=== PATIENT | male | born 1985 | race Caucasian/White ===

== ENCOUNTER 2016-11-08 09:50 | Emergency (ER) | payer BC ==
--- NOTE | 2016-11-08 10:29 | EDM.PDOC ---
ED HPI GENERAL MEDICAL PROBLEM - General Chief Complaint: Headache Stated Complaint: HEAD PAIN/VOMITING/BLACKING OUT Time Seen by Provider: 11/08/16 10:29 Source of Information: Reports: Patient History Limitations: Reports: No Limitations - History of Present Illness INITIAL COMMENTS - FREE TEXT/NARRATIVE: 31-year-old male presents to the ED with reported severe headache. He's been suffering intermittent severe headaches for the last 2 weeks. He has a history of migraine headaches but never usually to this severity or this frequency. No recent falls or closed head injuries. This morning he awoke with a severe headache and once the sunlight hit him it seemed to make the headache much worse i.e. he severely photophobic. He did try to go to work but passed out at the workplace and was therefore sent home. He did have nausea and vomiting of bilious material's morning without blood. Has not been able to eat yet today. Usually been taking high quantities of Tylenol and Motrin for headache relief. He states otherwise his health is usually been pretty good. Headache pain is usually entire head today is more left hemicranial and particularly behind his eyes. Doesn't feel nauseated at present. [place] somewhat better after vomiting this morning Onset: Other (Chronic daily headache for the last 2 weeks just worse headache today.) Onset Date: 11/08/16 (Headache much worse today.) Duration: Week(s): (Intermittent headaches for several weeks gradually getting worse.) Location: Reports: Head Quality: Reports: Ache, Same as Previous Episode, Throbbing, Other (Owning). Denies: Burning, Dull, Pressure, Sharp (Just more intense today.) Severity: Severe Improves with: Reports: None (Grades it a 10 out of 10.) Worsens with: Reports: Other (Exposure to sunlight), Movement Context: Denies: Activity, Exercise, Lifting, Sick Contact, Trauma Associated Symptoms: Reports: Headaches, Loss of Appetite, Malaise, Nausea/ Vomiting. Denies: Fever/Chills (Vomited once this morning of bilious material) , Rash, Seizure, Shortness of Breath Treatments PATIENT OFFICE REP: Reports: Acetaminophen, NSAIDS (Motrin.) Headache Pain Score (Numeric/FACES): 7 - Related Data Allergies Allergy/AdvReac Type Severity Reaction Status Date / Time No Known Allergies Allergy Verified 11/08/16 10:16 Home Meds: Home Meds Ketorolac [Toradol] 10 mg PO Q6H PRN #10 tablet 11/08/16 [Rx] Metoclopramide HCl [Reglan] 10 mg PO 12 PRN #12 tablet 11/08/16 [Rx] Past Medical History Neurological History: Reports: Migraines Social & Family History - Tobacco Use Smoking Status *Q: Current Some Day Smoker Years of Tobacco use: 20 Packs/Tins Daily: 0.1 - Caffeine Use Caffeine Use: Reports: Energy Drinks, Soda Caffeine Use Comment: reports he stopped drinking energy drinks about 1 month ago - Recreational Drug Use Recreational Drug Use: No - Living Situation & Occupation Living situation: Reports: Occupation: Employed ED ROS GENERAL - Review of Systems Review Of Systems: See Below Constitutional: Reports: Weakness, Fatigue, Diaphoresis (Today when he vomited.) , Decreased Appetite. Denies: Fever, Chills, Malaise, Weight Loss HEENT: Reports: Ear Pain (Ear pressure at times.), Eye Pain. Denies: Glasses ( Very sensitive to sunlight.), Hearing Loss, Nosebleed, Rhinitis, Sinus Problem, Throat Pain, Throat Swelling Respiratory: Reports: No Symptoms Cardiovascular: Reports: No Symptoms Endocrine: Reports: No Symptoms GI/Abdominal: Reports: Nausea, Vomiting. Denies: Abdominal Pain : Reports: No Symptoms Musculoskeletal: Reports: No Symptoms Skin: Reports: No Symptoms Neurological: Reports: Dizziness, Headache, Syncope, Difficulty Walking (Seems to be more clumsy and stumbling more easily the last week or 2.). Denies: Pre- Existing Deficit, Trouble Speaking, Weakness, Change in Speech, Gait Disturbance Psychiatric: Reports: No Symptoms Hematologic/Lymphatic: Reports: No Symptoms Immunologic: Reports: No Symptoms - Physical Exam Exam: See Below Exam Limited By: Other General Appearance: Moderate Distress (Examination in dark room with sunglasses on due to the severity of his headache.) Eye Exam: Bilateral Eye: Normal Inspection, PERRL Ears: Normal TMs Throat/Mouth: Normal Inspection, Normal Lips, Normal Teeth, Normal Oropharynx Head Exam: Atraumatic, Normocephalic Neck: Normal Inspection, Supple, Non-Tender, Full Range of Motion. No: Lymphadenopathy (L), Lymphadenopathy (R) Respiratory/Chest: No Respiratory Distress, Lungs Clear, Normal Breath Sounds, No Accessory Muscle Use Cardiovascular: Normal Peripheral Pulses, Regular Rate, Rhythm, No Edema, No Gallop, No Murmur GI/Abdominal: Normal Bowel Sounds, Soft, Non-Tender, No Organomegaly, Abnormal Bowel Sounds, Other (Hypoactive no surgical scars) (Male) Exam: No Hernia Neuro Exam (Abbreviated): Alert, Oriented, CN II-XII Intact, Normal Cognition, Normal Reflexes, No Motor/Sensory Deficits. No: Normal Gait DTR: 1+: Achilles (R), Achilles (L), 2+: Bicep (R), Bicep (L), Patella (R), Patella (L) Back Exam: Normal Inspection Extremities: Normal Inspection, Normal Range of Motion, Non-Tender, No Pedal Edema, Normal Capillary Refill Psychiatric: Normal Affect, Normal Mood Skin Exam: Warm, Dry, Intact, Normal Color, No Rash Course - Vital Signs Last Recorded V/S: Last Vital Signs Temp 36.1 C 11/08/16 10:12 Pulse 68 11/08/16 12:45 Resp 16 11/08/16 12:45 BP 111/70 11/08/16 12:45 Pulse Ox 98 11/08/16 12:45 Orthostatic Blood Pressure [ 128/72 Standing] Orthostatic Blood Pressure [ 112/78 Sitting] Orthostatic Blood Pressure [ 121/75 Supine] - Orders/Labs/Meds Meds: Medications Discontinued Medications Generic Name Dose Route Start Last Admin Trade Name Garretq PRN Reason Stop Dose Admin Diphenhydramine HCl 25 mg 11/08/16 10:39 11/08/16 11:17 Benadryl IVPUSH 11/08/16 10:40 25 mg ONETIME ONE Administration Hydromorphone HCl 1 mg 11/08/16 10:40 11/08/16 11:19 Dilaudid IVPUSH 11/08/16 10:41 1 mg ONETIME ONE Administration Dextrose/Sodium Chloride 1,000 mls @ 999 mls/hr 11/08/16 10:45 11/08/16 11:21 Dextrose 5%-Normal Saline IV 999 mls/hr ASDIRECTED VIGNESH Administration Ketorolac Tromethamine 30 mg 11/08/16 11:30 11/08/16 11:26 Toradol IVPUSH 30 mg ONETIME VIGNESH Administration Metoclopramide HCl 10 mg 11/08/16 10:39 11/08/16 11:15 Reglan IVPUSH 11/08/16 10:40 10 mg ONETIME ONE Administration - Radiology Interpretation Free Text/Narrative:: 30-year-old male presents to the ED with a severe headache. Severe photosensitivity this morning. Tried to go to work with a severe headache but was unable do so. Soon as he got to work he recognized the sunlight intensified his headache and he vomited. He also had a fainting spell at that time. He thus was sent home from work. States she's been having migraine headaches or and almost chronic daily headaches for the last 2 weeks. History of migraine headaches in the past. No recent falls or closed head injuries. Appreciates that he is a little off balance and more clumsy at times. No change in his vision other than today he can't stand the sunlight. Neuro exam on gross grossly is normal. Plan CT head will be done due to increasing symptoms over the last several weeks. Plan IV D5 normal saline at open. Given Dilaudid 1 mg with Reglan 10 mg IV and Benadryl 25 mg IV. May add Toradol if his CT is okay. - Re-Assessments/Exams Free Text/Narrative Re-Assessment/Exam: 11/08/16 11:20 CT of the brain is completely normal. Sinuses are clear as well. Will therefore add Toradol 30 mg to his current treatment plan. 11/08/16 12:34 he reports headache is pretty well gone completely. He is now feeling hungry. I will discharge him from the department. He needs follow-up with neurology to start him on prophylaxis medication daily to prevent the migraines from recurring. By history he's been on Topamax in the past without much effect. He's been on others but he can't remember their names. I will write a prescription for Toradol 10 mg tablet with Reglan 10 mg tablet that he can take at the onset of severe headache and repeat in 6 hours if necessary to try and help control the severity these headaches. Departure - Departure Time of Disposition: 12:35 Disposition: Home, Self-Care 01 Condition: Fair Clinical Impression: Migraine, Chronic daily headache - Discharge Information Prescriptions: Ketorolac [Toradol] 10 mg PO Q6H PRN #10 tablet PRN Reason: headache relief. Metoclopramide HCl [Reglan] 10 mg PO 12 PRN #12 tablet PRN Reason: Migraine headache relief Instructions: Migraine Headache, [id number] Referrals: Quinton Oconnor MD [Primary Care Provider] - Forms: ED Department Discharge, ED Return to Work/School Form Additional Instructions: Evaluation the emergency room today in regards to a severe headache with associated nausea vomiting and near syncope this morning. Severe associated photophobia suggesting migraine headache. Unfortunately it sounds like your head suffering a lot of headaches almost on a daily basis which we called chronic daily headache. Today you were treated with intravenous fluids to rehydrate you as well as pain medication Dilaudid Toradol Reglan and Benadryl. These medications are combination that we often used to break the headache cycle cycle and nausea relief. May eat and drink per normal. I will write a prescription for Toradol 10 mg tablet and Reglan 10 mg tablet for future use. Ice it would suggest taking one tablet of each at the onset of severe headache to see if it will bring them under control. I believe you do need to follow-up with neurology to get started on medication to take on a daily basis to prevent the headaches from coming in the first place. Neck medications are on the market to try and help this.
[2016-11-08] MEDS ORDERED: Metoclopramide 10 MG/2 ML SDV IVPUSH ONE (10:39)
[2016-11-08] MEDS ORDERED: diphenhydrAMINE 50 MG/ML SDV IVPUSH ONE (10:39)
[2016-11-08] MEDS ORDERED: HYDROmorphone 1 MG/ML Syringe IVPUSH ONE (10:40)
[2016-11-08] MEDS ORDERED: Dextrose 5%-0.9% NaCl 1,000 ML IV SCH (10:45)
--- NOTE | 2016-11-08 11:00 | CT ---
Head CT Technique: Multiple axial sections through the brain were obtained. Intravenous contrast was not utilized. Comparison: No previous study. Findings: Ventricles along with basal cisterns and sulci over convexities are within normal limits. No abnormal parenchymal densities are seen. No evidence of intracranial hemorrhage. No midline shift or mass effect is seen. Bone window settings were reviewed which shows the visualized sinuses to appear clear. No acute calvarial abnormality is seen. Impression: 1. No acute intracranial abnormality is identified on noncontrast head CT study. Diagnostic code #1
[2016-11-08] MEDS ORDERED: Ketorolac 30 MG/ML SDV IVPUSH SCH (11:30)
[2016-11-08 13:12] VITALS: BP 111/70
== END 2016-11-08 12:50 | disposition home or self-care (01) ==
LOC: JD.ED 09:50
DX: G43.909 Migraine, unspecified, not intractable, without status migrainosus (principal); F17.210 Nicotine dependence, cigarettes, uncomplicated
CPT/HCPCS: 70450; 99284; J1170; J1200; J1885; J2765; J7042

== ENCOUNTER 2017-11-05 09:59 | Emergency (ER) | payer SELFPAY ==
[2017-11-05] MEDS ORDERED: Sodium Chloride 0.9% 10 ML Syringe FLUSH PRN (10:52)
[2017-11-05] MEDS ORDERED: Aspirin 81 MG Tab.Chew PO ONE (10:52)
[2017-11-05] MEDS ORDERED: Sodium Chloride 0.9% 1,000 ML IV SCH (11:00)
--- NOTE | 2017-11-05 13:03 | EDM.PDOC ---
ED HPI GENERAL MEDICAL PROBLEM - General Chief Complaint: Chest Pain Stated Complaint: CHEST PAIN X 10 DAYS Time Seen by Provider: 11/05/17 10:43 Source of Information: Reports: Patient History Limitations: Reports: No Limitations - History of Present Illness INITIAL COMMENTS - FREE TEXT/NARRATIVE: The patient presents wit left sided chest pain. This has been going on for about 11 days. 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 He got out of his truck and vomited. He then had a syncopal episode. He had that happen again and came to the ER to be evaluated. He was seen here and a work up was done and it was relatively normal. Since that day he has had left sided chest pain. He says it is there constantly and with exertion and when he gets upset it gets worse. The pain is sharp. He has no shortness of breath with it. He has no fever, chills, cough, abdominal pain, nausea or vomiting Onset: Gradual Duration: Day(s): (11) Location: Reports: Chest Quality: Reports: Sharp Severity: Moderate Improves with: Reports: Immobilization Worsens with: Reports: Movement Associated Symptoms: Reports: Chest Pain. Denies: Cough, Fever/Chills, Headaches, Nausea/Vomiting, Shortness of Breath Left Chest Pain Score (Numeric/FACES): 6 - Related Data Allergies Allergy/AdvReac Type Severity Reaction Status Date / Time No Known Allergies Allergy Verified 11/05/17 10:25 Home Meds: Home Meds Ondansetron [Zofran ODT] 4 mg PO Q6H PRN #12 tab.dis 10/25/17 [Rx] Hydrocodone/Acetaminophen [Hydrocodon-Acetaminophen 5-325] 1 - 2 each PO Q6HR PRN #15 tablet 11/05/17 [Rx] Past Medical History Neurological History: Reports: Migraines Social & Family History - Tobacco Use Smoking Status *Q: Light Tobacco Smoker Years of Tobacco use: 24 Packs/Tins Daily: 0.1 - Caffeine Use Caffeine Use: Reports: Soda Caffeine Use Comment: reports he stopped drinking energy drinks about 1 month ago - Recreational Drug Use Recreational Drug Use: No - Living Situation & Occupation Living situation: Reports: Occupation: Employed ED ROS GENERAL - Review of Systems Review Of Systems: See Below Constitutional: Reports: No Symptoms HEENT: Reports: No Symptoms Respiratory: Reports: No Symptoms Cardiovascular: Reports: Chest Pain Endocrine: Reports: No Symptoms GI/Abdominal: Reports: No Symptoms : Reports: No Symptoms Musculoskeletal: Reports: No Symptoms ED EXAM, GENERAL - Physical Exam Exam: See Below Exam Limited By: No Limitations General Appearance: Alert, No Apparent Distress Ears: Normal External Exam Nose: Normal Inspection Head: Atraumatic, Normocephalic Neck: Normal Inspection Respiratory/Chest: No Respiratory Distress, Lungs Clear, Normal Breath Sounds Cardiovascular: Regular Rate, Rhythm, No Edema, No Murmur GI/Abdominal: Soft, Non-Tender, No Organomegaly, No Mass Back Exam: Normal Inspection Extremities: Normal Inspection EKG INTERPRETATION EKG Date: 11/05/17 Time: 10:23 Rhythm: Other (Sinus bradycardia) Rate (Beats/Min): 56 [place]: Normal P-Wave: Present QRS: Normal ST-T: Elevated (Normal early repol) QT: Normal Course - Vital Signs Last Recorded V/S: Last Vital Signs Temp 97.1 F 11/05/17 10:22 Pulse 56 L 11/05/17 10:22 Resp 15 11/05/17 10:22 BP 127/81 11/05/17 10:22 Pulse Ox 96 11/05/17 10:22 - Orders/Labs/Meds Orders: Active Orders 24 hr Category Date Time Status Cardiac Monitoring [RC] . DIRECTED Care 11/05/17 10:53 Active EKG Documentation Completion [RC] ASDIRECTED Care 11/05/17 10:36 Active Peripheral IV Care [RC] . DIRECTED Care 11/05/17 10:53 Active Chest 2V [CR] Stat Exams 11/05/17 10:53 Taken Sodium Chloride 0.9% [Normal Saline] 1,000 ml Med 11/05/17 11:00 Active IV .BOLUS Sodium Chloride 0.9% [Saline Flush] Med 11/05/17 10:52 Active 10 ml FLUSH ASDIRECTED PRN Peripheral IV Insertion Adult [OM.PC] Stat Oth 11/05/17 10:52 Ordered EKG 12 Lead [EK] Stat Ther 11/05/17 10:36 Ordered Medication Orders Sodium Chloride (Normal Saline) 1,000 mls @ 1,000 mls/hr IV .BOLUS VIGNESH Last Admin: 11/05/17 11:07 Dose: 1,000 mls/hr Sodium Chloride (Saline Flush) 10 ml FLUSH ASDIRECTED PRN PRN Reason: Keep Vein Open Last Admin: 11/05/17 11:07 Dose: 10 ml Labs: Laboratory Tests 11/05/17 11/05/17 11/05/17 Range/Units 11:05 11:05 11:05 WBC 8.23 (4.23-9.07) K/mm3 RBC 5.33 (4.63-6.08) M/mm3 Hgb 15.4 (13.7-17.5) gm/L Hct 43.9 (40.1-51.0) % MCV 82.4 (79.0-92.2) fl MCH 28.9 (25.7-32.2) pg MCHC 35.1 (32.2-35.5) g/dl RDW Std Deviation 38.8 (35.1-43.9) fL Plt Count 187 (163-337) K/mm3 MPV 11.5 (9.4-12.3) fl Neut % (Auto) 52.0 (34.0-67.9) % Lymph % (Auto) 36.7 (21.8-53.1) % [place] % (Auto) 8.7 (5.3-12.2) % Eos % (Auto) 1.7 (0.8-7.0) Baso % (Auto) 0.4 (0.1-1.2) % Neut # (Auto) 4.28 (1.78-5.38) K/mm3 Lymph # (Auto) 3.02 (1.32-3.57) K/mm3 [place] # (Auto) 0.72 (0.30-0.82) K/mm3 Eos # (Auto) 0.14 (0.04-0.54) K/mm3 Baso # (Auto) 0.03 (0.01-0.08) K/mm3 D-Dimer, Quantitative 0.46 (0.19-0.50) mg/L Sodium 139 (136-145) mEq/L Potassium 4.4 (3.5-5.1) mEq/L Chloride 103 (98-107) mEq/L Carbon Dioxide 25 (21-32) mEq/L Anion Gap 15.4 H (5-15) BUN 16 (7-18) mg/dL Creatinine 1.0 (0.7-1.3) mg/dL Est Cr Clr Drug Dosing 104.09 mL/min Estimated GFR (MDRD) > 60 (>60) mL/min BUN/Creatinine Ratio 16.0 (14-18) Glucose 96 (74-106) mg/dL Calcium 9.1 (8.5-10.1) mg/dL Total Bilirubin 0.4 (0.2-1.0) mg/dL AST 35 (15-37) U/L ALT 75 H (16-63) U/L Alkaline Phosphatase 78 (46-116) U/L Troponin I < 0.017 (0.00-0.056) ng/mL Total Protein 7.4 (6.4-8.2) g/dl Albumin 3.8 (3.4-5.0) g/dl Globulin 3.6 gm/dL Albumin/Globulin Ratio 1.1 (1-2) Meds: Medications Generic Name Dose Route Start Last Admin Trade Name Freq PRN Reason Stop Dose Admin Sodium Chloride 1,000 mls @ 1,000 mls/hr 11/05/17 11:00 11/05/17 11:07 Normal Saline IV 1,000 mls/hr .BOLUS VIGNESH Administration Sodium Chloride 10 ml 11/05/17 10:52 11/05/17 11:07 Saline Flush FLUSH 10 ml ASDIRECTED PRN Administration Keep Vein Open Discontinued Medications Generic Name Dose Route Start Last Admin Trade Name Freq PRN Reason Stop Dose Admin Aspirin 324 mg 11/05/17 10:52 11/05/17 11:06 Aspirin PO 11/05/17 10:53 324 mg ONETIME ONE Administration - Re-Assessments/Exams Free Text/Narrative Re-Assessment/Exam: 11/05/17 13:23 I ordered an IV saline lock, EKG, CXR, labs and aspirin. His EKG shows a sinus bradycardia with no acute changes. His CXR looks good. His CBC and CMP look good. His troponin and D-dimer were negative. He still has some pain. I have ordered a stress test for . He is seeing Dr Lynch on the . Departure - Departure Time of Disposition: 13:30 Disposition: Home, Self-Care 01 Condition: Good Clinical Impression: Chest pain Qualifiers: Chest pain type: unspecified Qualified Code(s): R07.9 - Chest pain, unspecified Prescriptions: Hydrocodone/Acetaminophen [Hydrocodon-Acetaminophen 5-325] 1 - 2 each PO Q6HR PRN #15 tablet PRN Reason: Pain Referrals: Quinton Oconnor MD [Primary Care Provider] - 2 Weeks Forms: ED Department Discharge Additional Instructions: Take motrin or aleve for pain. You may also take the hydrocodone for pain. I have ordered a stress test for at 7:15am. Please come early to register. Please return if you are worse or follow up with Dr Lynch as planned. I will try to call you the results on Sunday. - My Orders Last 24 Hours: My Active Orders 11/05/17 10:36 EKG Documentation Completion [RC] ASDIRECTED EKG 12 Lead [EK] Stat 11/05/17 10:52 Sodium Chloride 0.9% [Saline Flush] 10 ml FLUSH ASDIRECTED PRN Peripheral IV Insertion Adult [OM.PC] Stat 11/05/17 10:53 Cardiac Monitoring [RC] . DIRECTED Peripheral IV Care [RC] . DIRECTED Chest 2V [CR] Stat 11/05/17 11:00 Sodium Chloride 0.9% [Normal Saline] 1,000 ml IV .BOLUS - Assessment/Plan Last 24 Hours: My Active Orders 11/05/17 10:36 EKG Documentation Completion [RC] ASDIRECTED EKG 12 Lead [EK] Stat 11/05/17 10:52 Sodium Chloride 0.9% [Saline Flush] 10 ml FLUSH ASDIRECTED PRN Peripheral IV Insertion Adult [OM.PC] Stat 11/05/17 10:53 Cardiac Monitoring [RC] . DIRECTED Peripheral IV Care [RC] . DIRECTED Chest 2V [CR] Stat 11/05/17 11:00 Sodium Chloride 0.9% [Normal Saline] 1,000 ml IV .BOLUS
[2017-11-05 13:40] VITALS: BP 123/74
--- NOTE | 2017-11-12 08:36 | CR ---
Chest: Two views of the chest were obtained. Comparison: Prior chest x-ray of 10/25/17. Heart size and mediastinum are normal. Lungs are clear without acute parenchymal change. Bony structures are unremarkable. Impression: 1. Nothing acute is seen on two-view chest x-ray. Diagnostic code #1
== END 2017-11-05 13:44 | disposition home or self-care (01) ==
LOC: JD.ED 09:59
DX: R07.9 Chest pain, unspecified (principal); F17.210 Nicotine dependence, cigarettes, uncomplicated
CPT/HCPCS: 36415; 71046; 80053; 84484; 85025; 85379; 93005; 96360; 99285; A9270; J7040; J7050; 93010; 99284-25

== ENCOUNTER 2019-01-13 03:18 | Emergency (ER) | payer BC, OTHER ==
[2019-01-13] MEDS ORDERED: diphenhydrAMINE 50 MG Cap PO ONE (07:36)
[2019-01-13] MEDS ORDERED: Metoclopramide 10 MG/2 ML SDV IVPUSH ONE (07:36)
[2019-01-13] MEDS ORDERED: Sodium Chloride 0.9% 10 ML Syringe FLUSH PRN (07:36)
[2019-01-13] MEDS ORDERED: Sodium Chloride 0.9% 1,000 ML IV SCH (07:45)
[2019-01-13] MEDS ORDERED: Ketorolac 30 MG/ML SDV IVPUSH SCH (07:45)
--- NOTE | 2019-01-13 09:34 | EDM.PDOC ---
ED HPI GENERAL MEDICAL PROBLEM - General Chief Complaint: Headache Stated Complaint: VOMITING Time Seen by Provider: 01/13/19 07:30 Source of Information: Reports: Patient, RN Notes Reviewed - History of Present Illness INITIAL COMMENTS - FREE TEXT/NARRATIVE: 33 year old had onset of cough, hannah. sore throat about 3 days ago, onset of migraine Brooks yesterday, worse today. Throbbing, N/V. Chills, no fever. Cough mostly nonprod. Headache Pain Score (Numeric/FACES): 10 Throat Pain Score (Numeric/FACES): 7 - Related Data Allergies Allergy/AdvReac Type Severity Reaction Status Date / Time No Known Allergies Allergy Verified 01/13/19 05:50 Home Meds: Home Meds Phenylephrine/Acetaminophn/Pnm [Theraflu Sinus & Cold] 1 pack PO ONCALL PRN [History] Past Medical History - Past Health History Medical/Surgical History: Denies Medical/Surgical History Neurological History: Reports: Migraines Social & Family History - Tobacco Use Smoking Status *Q: Never Smoker - Caffeine Use Caffeine Use: Reports: Soda Caffeine Use Comment: reports he stopped drinking energy drinks about 1 month ago - Recreational Drug Use Recreational Drug Use: No - Living Situation & Occupation Living situation: Reports: Occupation: Employed ED ROS GENERAL - Review of Systems Review Of Systems: See Below Constitutional: Reports: Chills. Denies: Fever HEENT: Reports: Rhinitis, Throat Pain Respiratory: Reports: Cough. Denies: Shortness of Breath, Sputum Cardiovascular: Denies: Chest Pain GI/Abdominal: Reports: Nausea, Vomiting. Denies: Abdominal Pain Musculoskeletal: Denies: Neck Pain, Shoulder Pain, Back Pain Skin: Reports: No Symptoms Neurological: Reports: Headache. Denies: Trouble Speaking, Difficulty Walking ED EXAM, HEAD INJURY - Physical Exam Exam: See Below General Appearance: Alert Head: Atraumatic. No: Facial Swelling Throat/Mouth: Normal Inspection Neck: Non-Tender Respiratory: No Respiratory Distress, Lungs Clear, Normal Breath Sounds Cardiovascular: Regular Rate, Rhythm GI/Abdominal Exam: Soft, Non-Tender Back Exam: Normal Inspection Extremities: Normal Inspection Neurologic: No Motor/Sensory Deficits, Oriented x 3 Skin: Normal Color, Warm/Dry Course - Vital Signs Last Recorded V/S: Last Vital Signs Temp 98.5 F 01/13/19 08:10 Pulse 68 10/28/19 08:10 Resp 16 01/13/19 08:10 BP 127/83 01/13/19 08:10 Pulse Ox 99 01/13/19 08:10 - Orders/Labs/Meds Orders: Active Orders 24 hr Category Date Time Status Peripheral IV Care [RC] . DIRECTED Care 01/13/19 07:36 Active Ketorolac [Toradol] Med 01/13/19 07:45 Active 30 mg IVPUSH ONETIME Sodium Chloride 0.9% [Normal Saline] 1,000 ml Med 01/13/19 07:45 Active IV ONETIME Sodium Chloride 0.9% [Saline Flush] Med 01/13/19 07:36 Active 10 ml FLUSH ASDIRECTED PRN Peripheral IV Insertion Adult [OM.PC] Stat Oth 01/13/19 07:36 Ordered Medication Orders Sodium Chloride (Normal Saline) 1,000 mls @ 999 mls/hr IV ONETIME VIGNESH Last Admin: 01/13/19 08:22 Dose: 999 mls/hr Ketorolac Tromethamine (Toradol) 30 mg IVPUSH ONETIME VIGNESH Last Admin: 01/13/19 08:20 Dose: 30 mg Sodium Chloride (Saline Flush) 10 ml FLUSH ASDIRECTED PRN PRN Reason: Keep Vein Open Last Admin: 01/13/19 08:15 Dose: 10 ml Meds: Medications Generic Name Dose Route Start Last Admin Trade Name Freq PRN Reason Stop Dose Admin Sodium Chloride 1,000 mls @ 999 mls/hr 01/13/19 07:45 01/13/19 08:22 Normal Saline IV 999 mls/hr ONETIME VIGNESH Administration Ketorolac Tromethamine 30 mg 01/13/19 07:45 01/13/19 08:20 Toradol IVPUSH 30 mg ONETIME VIGNESH Administration Sodium Chloride 10 ml 01/13/19 07:36 01/13/19 08:15 Saline Flush FLUSH 10 ml ASDIRECTED PRN Administration Keep Vein Open Discontinued Medications Generic Name Dose Route Start Last Admin Trade Name Freq PRN Reason Stop Dose Admin Diphenhydramine HCl 50 mg 01/13/19 07:36 01/13/19 08:23 Benadryl PO 01/13/19 07:37 50 mg ONETIME ONE Administration Metoclopramide HCl 10 mg 01/13/19 07:36 01/13/19 08:18 Reglan IVPUSH 01/13/19 07:37 10 mg ONETIME ONE Administration - Re-Assessments/Exams Free Text/Narrative Re-Assessment/Exam: 01/13/19 09:55 Feeling better after IV fluid and meds, discharge instr. as documented. Departure - Departure Time of Disposition: :28 Disposition: Home, Self-Care 01 Condition: Fair Clinical Impression: Viral URI, Migraine - Discharge Information Referrals: Sudha Grant PA-C [Primary Care Provider] - Forms: ED Department Discharge, ED Return to Work/School Form Additional Instructions: rest, drink plenty of fluids to maintain hydration. You have been given sedating meds here in the ED, do not drive for 8 to 10 hours. Start Zithromax antibioitc if not much better within 2 to 3 days as expected. Follow up clinic as needed. - My Orders Last 24 Hours: My Active Orders 01/13/19 07:36 Peripheral IV Care [RC] . DIRECTED Sodium Chloride 0.9% [Saline Flush] 10 ml FLUSH ASDIRECTED PRN Peripheral IV Insertion Adult [OM.PC] Stat 01/13/19 07:45 Ketorolac [Toradol] 30 mg IVPUSH ONETIME Sodium Chloride 0.9% [Normal Saline] 1,000 ml IV ONETIME - Assessment/Plan Last 24 Hours: My Active Orders 01/13/19 07:36 Peripheral IV Care [RC] . DIRECTED Sodium Chloride 0.9% [Saline Flush] 10 ml FLUSH ASDIRECTED PRN Peripheral IV Insertion Adult [OM.PC] Stat 01/13/19 07:45 Ketorolac [Toradol] 30 mg IVPUSH ONETIME Sodium Chloride 0.9% [Normal Saline] 1,000 ml IV ONETIME
[2019-01-13 09:53] VITALS: BP 121/79; PULSE 81
== END 2019-01-13 09:50 | disposition home or self-care (01) ==
LOC: JD.ED 03:18
DX: J06.9 Acute upper respiratory infection, unspecified (principal); G43.909 Migraine, unspecified, not intractable, without status migrainosus
CPT/HCPCS: 96361; 96374; 96375; 99283; A9270; J1885; J2765; J7040

== ENCOUNTER 2021-09-06 05:52 | Emergency (ER) | payer BC, OTHER ==
[2021-09-06] MEDS ORDERED: Ondansetron 4 MG/2 ML SDV IVPUSH ONE (06:29)
[2021-09-06] MEDS ORDERED: Benztropine 1 MG Tab PO ONE (06:29)
[2021-09-06] MEDS ORDERED: Haloperidol Lactate 5 MG/ML SDV IM ONE (06:29)
[2021-09-06] MEDS ORDERED: Sodium Chloride 0.9% 1,000 ML IV ONE (06:29)
[2021-09-06 08:04] VITALS: BP 123/77; PULSE 60
== END 2021-09-06 08:00 | disposition home or self-care (01) ==
LOC: JD.ED 05:52
DX: G43.909 Migraine, unspecified, not intractable, without status migrainosus (principal); E66.9 Obesity, unspecified; Z68.38 Body mass index [BMI] 38.0-38.9, adult; Z28.310 Unvaccinated for COVID-19; Z87.891 Personal history of nicotine dependence
CPT/HCPCS: 96361; 96372; 96374; 99283; A9270; J1630; J2405; J7030; 99282

== ENCOUNTER 2021-10-20 06:02 | Emergency (ER) | payer OTHER ==
[2021-10-20] MEDS ORDERED: Ondansetron 4 MG/2 ML SDV IVPUSH ONE (06:28)
[2021-10-20] MEDS ORDERED: HYDROmorphone 1 MG/ML Syringe IVPUSH STA (06:28)
[2021-10-20] MEDS ORDERED: Sodium Chloride 0.9% 1,000 ML IV SCH (06:30)
[2021-10-20] MEDS ORDERED: Sodium Chloride 0.9% 10 ML Syringe FLUSH ONE (06:38)
[2021-10-20] MEDS ORDERED: Iopamidol 612 MG/ML 100 ML Bottle IVPUSH ONE (06:38)
[2021-10-20 08:05] VITALS: BP 122/84; PULSE 64
== END 2021-10-20 08:01 | disposition home or self-care (01) ==
LOC: JD.ED 06:02
DX: K52.9 Noninfective gastroenteritis and colitis, unspecified (principal); F17.210 Nicotine dependence, cigarettes, uncomplicated; E66.9 Obesity, unspecified; Z68.38 Body mass index [BMI] 38.0-38.9, adult; Z79.899 Other long term (current) drug therapy
CPT/HCPCS: 36415; 74177; 80053; 83690; 85007; 85027; 96361; 96374; 96375; 99284; J1170; J2405; J3490; J7030; Q9967

== ENCOUNTER 2021-11-01 07:51 | Emergency (ER) | payer OTHER ==
[2021-11-01 08:06] VITALS: BP 131/81; PULSE 61
[2021-11-01] MEDS ORDERED: Ondansetron 4 MG/2 ML SDV IVPUSH ONE (08:23)
[2021-11-01] MEDS ORDERED: Sodium Chloride 0.9% 10 ML Syringe FLUSH PRN (08:23)
[2021-11-01] MEDS ORDERED: Sodium Chloride 0.9% 1,000 ML IV STA (08:23)
[2021-11-01] MEDS ORDERED: HYDROmorphone 1 MG/ML Syringe IVPUSH ONE (08:24)
[2021-11-01] MEDS ORDERED: Pantoprazole 40 MG Vial IVPUSH ONE (08:24)
[2021-11-01] MEDS ORDERED: HYDROmorphone 0.5 MG/0.5 ML Syringe IVPUSH ONE (09:58)
== END 2021-11-01 11:40 | disposition home or self-care (01) ==
LOC: JD.ED 07:51
DX: R10.10 Upper abdominal pain, unspecified (principal); F17.210 Nicotine dependence, cigarettes, uncomplicated; E66.9 Obesity, unspecified; Z68.38 Body mass index [BMI] 38.0-38.9, adult
CPT/HCPCS: 36415; 80053; 81001; 83690; 85025; 96361; 96374; 96375; 96376; 99284; C9113; J1170; J2405; J3490; J7030; 99283

== ENCOUNTER 2021-11-08 10:29 | Emergency (ER) | payer OTHER ==
[2021-11-08 10:55] VITALS: BP 129/80; PULSE 62
== END 2021-11-08 12:08 | disposition home or self-care (01) ==
LOC: JD.ED 10:29
DX: R10.84 Generalized abdominal pain (principal); E66.9 Obesity, unspecified; Z68.38 Body mass index [BMI] 38.0-38.9, adult; Z87.891 Personal history of nicotine dependence; Z79.899 Other long term (current) drug therapy
CPT/HCPCS: 99283